=== PATIENT | female | born 1975 | race Hispanic/Latino ===

== ENCOUNTER 2016-10-05 09:59 | Emergency (ER) | payer MEDICAID ==
[2016-10-05 10:18] VITALS: BP 123/68
[2016-10-05] MEDS ORDERED: TORADOL IM ONE (12:05)
--- NOTE | 2016-10-05 12:55 | XRay Report ---
LEFT ANKLE RADIOGRAPHS INDICATION: Pain, swelling. COMPARISON: None similar. FINDINGS: AP, lateral and oblique left ankle radiographs demonstrate intact mortise, malleoli and talar dome contour. Lower leg soft tissue prominence/swelling and possible superficial varicosities, more so medially may also extend to the medial malleolus and some along dorsum of the foot. Small to moderate dorsal and plantar calcaneal spurs. CONCLUSION: No acute left ankle bony abnormality, though medial soft tissue swelling possible and calcaneal spurs also noted, as described. Please correlate. Thank you for the opportunity to participate in this patient's care.
--- NOTE | 2016-10-05 13:05 | XRay Report ---
Left foot 3 views: History: Pain and swelling. Findings: No evidence of acute fracture or dislocation. Arthritic changes at the first tarsometatarsal joint and metatarsophalangeal and interphalangeal joints. Hallux valgus. Spur posterior superior and posterior inferior calcaneum. Impression: No evidence of acute fracture.
--- NOTE | 2016-10-05 13:31 | Emergency Department Report ---
ED Lower Extremity HPI - General Chief Complaint: Extremity Injury, Lower Stated Complaint: LEFT ANKLE PAIN Source: patient Mode of arrival: Wheelchair Limitations: No Limitations - History of Present Illness Initial Comments: 41 year old female presents to ED with left plantar foot pain x1 week. patient is stable, neurologically intact and in no acute distress. MD Complaint: other (left foot pain) -: Gradual, week(s) (1) Injury: Foot: Left Severity: mild Worsens With: weight bearing Associated Symptoms: swelling, able to partially bear weight. denies: snap/pop sensation, numbness, tingling - Related Data Previous Rx's Medication Instructions Recorded Last Taken Type Amoxicillin [Amoxicillin TAB] 875 mg PO BID #20 tablet 12/19/12 Unknown Rx Amoxicillin/K Clav Tab [Augmentin 1 each PO Q8HR #30 tablet 04/01/13 Unknown Rx 500 mg] traMADol [Ultram] 50 mg PO Q6HR PRN #15 tablet 04/01/13 Unknown Rx Albuterol Sulfate [Ventolin HFA] 2 puff IH Q4H PRN #1 hfa.aer.ad 03/06/14 Unknown Rx Amoxicillin 500 mg PO BID #20 tablet 03/06/14 Unknown Rx Ciprofloxacin HCl [Cipro] 500 mg PO Q12H #14 tab 08/12/14 Unknown Rx Ibuprofen [Motrin] 800 mg PO Q8H PRN #30 tablet 08/12/14 Unknown Rx traMADol [Ultram] 50 mg PO Q6HR PRN #20 tablet 08/12/14 Unknown Rx Meloxicam [Mobic] 7.5 mg PO QDAY #5 tablet 10/05/16 Unknown Rx methOCARBAMOL [Robaxin TAB] 500 mg PO BID #10 tab 10/05/16 Unknown Rx Allergies Allergy/AdvReac Type Severity Reaction Status Date / Time aspirin Allergy Angioedema Verified 12/19/12 00:52 cephalexin monohydrate Allergy Angioedema Verified 12/19/12 00:52 [From Keflex] codeine Allergy Angioedema Verified 12/19/12 00:52 Sulfa (Sulfonamide Allergy Angioedema Verified 12/19/12 00:53 Antibiotics) ED Review of Systems ROS: Stated complaint: LEFT ANKLE PAIN Other details as noted in HPI Constitutional: denies: chills, fever Eyes: denies: eye pain, eye discharge, vision change ENT: denies: ear pain, throat pain Respiratory: denies: cough, shortness of breath, wheezing Cardiovascular: denies: chest pain, palpitations Endocrine: no symptoms reported Gastrointestinal: denies: abdominal pain, nausea, diarrhea Genitourinary: denies: urgency, dysuria, discharge Musculoskeletal: joint swelling, arthralgia. denies: back pain Skin: denies: rash, lesions Neurological: denies: headache, weakness, paresthesias Psychiatric: denies: anxiety, depression Hematological/Lymphatic: denies: easy bleeding, easy bruising ED Past Medical Hx - Past Medical History Previous Medical History?: Yes Hx Asthma: Yes - Surgical History Past Surgical History?: Yes Additional Surgical History: cholecysectomy 2005 - Social History Smoking Status: Current Every Day Smoker Substance Use Type: None - Medications Home Medications: Home Medications Medication Instructions Recorded Confirmed Last Taken Type Amoxicillin [Amoxicillin TAB] 875 mg PO BID #20 tablet 12/19/12 04/01/13 Unknown Rx Amoxicillin/K Clav Tab [Augmentin 1 each PO Q8HR #30 tablet 04/01/13 Unknown Rx 500 mg] traMADol [Ultram] 50 mg PO Q6HR PRN #15 tablet 04/01/13 Unknown Rx Albuterol Sulfate [Ventolin HFA] 2 puff IH Q4H PRN #1 hfa.aer.ad 03/06/14 Unknown Rx Amoxicillin 500 mg PO BID #20 tablet 03/06/14 Unknown Rx Ciprofloxacin HCl [Cipro] 500 mg PO Q12H #14 tab 08/12/14 Unknown Rx Ibuprofen [Motrin] 800 mg PO Q8H PRN #30 tablet 08/12/14 Unknown Rx traMADol [Ultram] 50 mg PO Q6HR PRN #20 tablet 08/12/14 Unknown Rx Meloxicam [Mobic] 7.5 mg PO QDAY #5 tablet 10/05/16 Unknown Rx methOCARBAMOL [Robaxin TAB] 500 mg PO BID #10 tab 10/05/16 Unknown Rx ED Physical Exam - General Limitations: No Limitations General appearance: alert, in no apparent distress - Head Head exam: Present: atraumatic, normocephalic - Eye Eye exam: Present: normal appearance - ENT ENT exam: Present: mucous membranes moist - Neck Neck exam: Present: normal inspection, full ROM - Respiratory Respiratory exam: Present: normal lung sounds bilaterally. Absent: respiratory distress, wheezes, rales, rhonchi - Cardiovascular Cardiovascular Exam: Present: regular rate, normal rhythm. Absent: systolic murmur, diastolic murmur, rubs, gallop - GI/Abdominal GI/Abdominal exam: Present: soft, normal bowel sounds. Absent: distended, tenderness - Extremities Exam Extremities exam: Present: normal inspection, full ROM, tenderness (mild tenderness to plantar surface of left foot. ) - Back Exam Back exam: Present: normal inspection - Neurological Exam Neurological exam: Present: alert, oriented X3 - Psychiatric Psychiatric exam: Present: normal affect, normal mood - Skin Skin exam: Present: warm, dry, intact, normal color. Absent: rash ED Course Vital Signs 10/05/16 10:16 Temperature 98.6 F Pulse Rate 65 Respiratory 16 Rate Blood Pressure 123/68 O2 Sat by Pulse 99 Oximetry ED Lower Extremity MDM - Radiology Data Radiology results: report reviewed left foot/ankle xray No evidence of acute fracture. spur posterior inferior calcaneum. - Medical Decision Making 41 year old female presents to ED with left foot pain x1 week. patient denies injury/trauma. patient has imaging study positive for calcaneal spur at site of pain. patient will be given prescription for NSAIDS and muscle relaxants. patient is stable, neurologically intact and in no acute distress. patient has refused medication during ED visit. Critical care attestation.: If time is entered above; I have spent that time in minutes in the direct care of this critically ill patient, excluding procedure time. ED Disposition Clinical Impression: Calcaneal spur Qualifiers: Laterality: left Qualified Code(s): M77.32 - Calcaneal spur, left foot Disposition: TO HOME OR SELFCARE Is pt being admited?: No Does the pt Need Aspirin: No Condition: Stable Instructions: Plantar Fasciitis (ED) Prescriptions: Meloxicam [Mobic] 7.5 mg PO QDAY #5 tablet methOCARBAMOL [Robaxin TAB] 500 mg PO BID #10 tab Referrals: PRIMARY CARE, [Primary Care Provider] - 3-5 Days
== END 2016-10-05 13:41 | disposition home or self-care (01) ==
LOC: ED 09:59
DX: M77.32 Calcaneal spur, left foot (principal); J45.909 Unspecified asthma, uncomplicated; F17.200 Nicotine dependence, unspecified, uncomplicated; Z88.5 Allergy status to narcotic agent; Z88.2 Allergy status to sulfonamides; Z88.6 Allergy status to analgesic agent
CPT/HCPCS: 73610; 73630; 99283; J1885

== ENCOUNTER 2016-12-31 09:47 | Emergency (ER) | payer MEDICAID ==
[2016-12-31 10:33] VITALS: BP 124/72
[2016-12-31] MEDS ORDERED: PROVENTIL IH ONE (12:50)
--- NOTE | 2016-12-31 13:02 | Emergency Department Report ---
- General Chief Complaint: Upper Respiratory Infection Stated Complaint: SOB,WEAK,FEVER Time Seen by Provider: 12/31/16 11:59 Source: EMS Mode of arrival: Ambulatory Limitations: No Limitations - History of Present Illness Initial Comments: This is a 41-year-old female nontoxic, well nourished in appearance, no acute signs of distress presents to the ED with c/o of frontal sinus pain, nasal congestion, fever, chills, shortness of breathe, productive cough x3 days. Patient denies any trauma. Patient describes headache in the frontal region of the scalp and describes it as aching with level of 8/10. Patient denies thunderclap headache. Patient denies any vomiting or any nausea/vomiting. Patient denies any chest pain, fever, chills, nausea, vomiting, numbness, tingling, stiff neck, blurry vision, visual changes. Patient denies any calf pain, calf tenderness. Denies recent travels, long car rides or recent hospital stays. Patient states allergies to aspirin, Keflex, codeine, and sulfa drugs. PMH includes asthma. MD Complaint: fever, cough, rhinorrhea, nasal congestion, sinus pain -: Gradual, days(s) (3) Severity: mild Severity scale (0 -10): 8 Quality: aching Consistency: constant Improves With: nothing Worsens With: nothing Associated Symptoms: fever, chills, headache, rhinorrhea, nasal congestion, cough, shortness of breath. denies: myalgias, diaphoresis, sore throat, stiff neck, chest pain, abdominal pain, nausea, vomiting, diarrhea, dysuria, rash, confusion, right sweats, weight loss, epistaxis, hoarseness, ear pain Treatments Prior to Arrival: none - Related Data Previous Rx's Medication Instructions Recorded Last Taken Type Amoxicillin [Amoxicillin TAB] 875 mg PO BID #20 tablet 12/19/12 Unknown Rx Amoxicillin/K Clav Tab [Augmentin 1 each PO Q8HR #30 tablet 04/01/13 Unknown Rx 500 mg] traMADol [Ultram] 50 mg PO Q6HR PRN #15 tablet 04/01/13 Unknown Rx Albuterol Sulfate [Ventolin HFA] 2 puff IH Q4H PRN #1 hfa.aer.ad 03/06/14 Unknown Rx Amoxicillin 500 mg PO BID #20 tablet 03/06/14 Unknown Rx Ciprofloxacin HCl [Cipro] 500 mg PO Q12H #14 tab 08/12/14 Unknown Rx Ibuprofen [Motrin] 800 mg PO Q8H PRN #30 tablet 08/12/14 Unknown Rx traMADol [Ultram] 50 mg PO Q6HR PRN #20 tablet 08/12/14 Unknown Rx Meloxicam [Mobic] 7.5 mg PO QDAY #5 tablet 10/05/16 Unknown Rx methOCARBAMOL [Robaxin TAB] 500 mg PO BID #10 tab 10/05/16 Unknown Rx ALBUTEROL Inhaler [ProAir HFA 2 puff IH QID PRN #1 inhalation 12/31/16 Unknown Rx Inhaler] Clindamycin [Clindamycin CAP] 300 mg PO Q8H 7 Days cap 12/31/16 Unknown Rx predniSONE [Deltasone] 40 mg PO QDAY #5 tab 12/31/16 Unknown Rx Allergies Allergy/AdvReac Type Severity Reaction Status Date / Time aspirin Allergy Angioedema Verified 12/19/12 00:52 cephalexin monohydrate Allergy Angioedema Verified 12/19/12 00:52 [From Keflex] codeine Allergy Angioedema Verified 12/19/12 00:52 Sulfa (Sulfonamide Allergy Angioedema Verified 12/19/12 00:53 Antibiotics) ED Review of Systems ROS: Stated complaint: SOB,WEAK,FEVER Other details as noted in HPI Constitutional: denies: chills, fever Eyes: denies: eye pain, eye discharge, vision change ENT: denies: ear pain, throat pain Respiratory: cough, shortness of breath, wheezing Cardiovascular: denies: chest pain, palpitations Endocrine: no symptoms reported Gastrointestinal: denies: abdominal pain, nausea, diarrhea Genitourinary: denies: urgency, dysuria, discharge Musculoskeletal: denies: back pain, joint swelling, arthralgia Skin: denies: rash, lesions Neurological: denies: headache, weakness, paresthesias Psychiatric: denies: anxiety, depression Hematological/Lymphatic: denies: easy bleeding, easy bruising ED Past Medical Hx - Past Medical History Previous Medical History?: Yes Hx Asthma: Yes - Surgical History Past Surgical History?: Yes Hx Cholecystectomy: Yes Additional Surgical History: cholecysectomy 2005 - Social History Smoking Status: Current Every Day Smoker - Medications Home Medications: Home Medications Medication Instructions Recorded Confirmed Last Taken Type Amoxicillin [Amoxicillin TAB] 477 mg PO BID #20 tablet 12/19/12 04/01/13 Unknown Rx Amoxicillin/K Clav Tab [Augmentin 1 each PO Q8HR #30 tablet 04/01/13 Unknown Rx 500 mg] traMADol [Ultram] 50 mg PO Q6HR PRN #15 tablet 04/01/13 Unknown Rx Albuterol Sulfate [Ventolin HFA] 2 puff IH Q4H PRN #1 hfa.aer.ad 03/06/14 Unknown Rx Amoxicillin 500 mg PO BID #20 tablet 03/06/14 Unknown Rx Ciprofloxacin HCl [Cipro] 500 mg PO Q12H #14 tab 08/12/14 Unknown Rx Ibuprofen [Motrin] 800 mg PO Q8H PRN #30 tablet 08/12/14 Unknown Rx traMADol [Ultram] 50 mg PO Q6HR PRN #20 tablet 08/12/14 Unknown Rx Meloxicam [Mobic] 7.5 mg PO QDAY #5 tablet 10/05/16 Unknown Rx methOCARBAMOL [Robaxin TAB] 500 mg PO BID #10 tab 10/05/16 Unknown Rx ALBUTEROL Inhaler [ProAir HFA 2 puff IH QID PRN #1 inhalation 12/31/16 Unknown Rx Inhaler] Clindamycin [Clindamycin CAP] 300 mg PO Q8H 7 Days cap 12/31/16 Unknown Rx predniSONE [Deltasone] 40 mg PO QDAY #5 tab 12/31/16 Unknown Rx ED Physical Exam - General Limitations: No Limitations General appearance: alert, in no apparent distress - Head Head exam: Present: atraumatic, normocephalic, normal inspection - Eye Eye exam: Present: normal appearance, PERRL, EOMI. Absent: scleral icterus, conjunctival injection, nystagmus, periorbital swelling, periorbital tenderness Pupils: Present: normal accommodation - ENT ENT exam: Present: normal exam, normal orophraynx, mucous membranes moist, TM's normal bilaterally, normal external ear exam - Neck Neck exam: Present: normal inspection, full ROM. Absent: tenderness, meningismus, lymphadenopathy, thyromegaly - Respiratory Respiratory exam: Present: normal lung sounds bilaterally, wheezes (inspiratory and expiratory bilateral upper and lower lobes). Absent: respiratory distress, rales, rhonchi, stridor, chest wall tenderness, accessory muscle use, decreased breath sounds, prolonged expiratory - Cardiovascular Cardiovascular Exam: Present: regular rate, normal rhythm, normal heart sounds. Absent: bradycardia, tachycardia, irregular rhythm, systolic murmur, diastolic murmur, rubs, gallop - GI/Abdominal GI/Abdominal exam: Present: soft, normal bowel sounds. Absent: distended, tenderness, guarding, rebound, rigid, diminished bowel sounds - Rectal Rectal exam: Present: deferred - Extremities Exam Extremities exam: Present: normal inspection, full ROM, normal capillary refill. Absent: tenderness, pedal edema, joint swelling, calf tenderness - Back Exam Back exam: Present: normal inspection, full ROM. Absent: tenderness, CVA tenderness (R), CVA tenderness (L), muscle spasm, paraspinal tenderness, vertebral tenderness, rash noted - Neurological Exam Neurological exam: Present: alert, oriented X3, CN II-XII intact, normal gait, reflexes normal - Psychiatric Psychiatric exam: Present: normal affect, normal mood - Skin Skin exam: Present: warm, dry, intact, normal color. Absent: rash - Other Other exam information: Positive frontal sinus tenderness ED Course Vital Signs 12/31/16 10:28 Temperature 97.4 F L Pulse Rate 75 Respiratory 20 Rate Blood Pressure 124/72 O2 Sat by Pulse 94 Oximetry - Reevaluation(s) Reevaluation #1: 12/31/16 13:05 Patient is speaking in full sentences with no signs of distress noted. ED Medical Decision Making - Medical Decision Making This is a 41-year-old female that presents with sinusitis and upper respiratory infection. Patient is stable and was examined by me. CBC, BMP, troponin, cardiac CK, d-dimer obtained with normal limits. Chest x-ray has been obtained and the radiologist with normal examination. UA obtained. EKG normal sinus rhythm with no ST abnormalities. Patient notified of laboratory results and x- ray results with noted by the patient. Patient received DuoNeb and Solu-Medrol in the ED with persistent symptoms of shortness of breath has subsided. Upon auscultation there is no wheezing post treatment. Patient treated with clinda at discharge and albuterol and prednisone. Patient was instructed Follow-up with a primary care doctor in 3-5 days or if symptoms worsen and continue return to emergency room as soon as possible. At time time of discharge, the patient does not seem toxic or ill in appearance. No acute signs of distress noted. Patient agrees to discharge treatment plan of care. No further questions noted by the patient. Critical care attestation.: If time is entered above; I have spent that time in minutes in the direct care of this critically ill patient, excluding procedure time. ED Disposition Clinical Impression: Upper respiratory infection Qualifiers: URI type: unspecified URI Qualified Code(s): J06.9 - Acute upper respiratory infection, unspecified Sinusitis Qualifiers: Sinusitis location: frontal Chronicity: acute Recurrence: non-recurrent Qualified Code(s): J01.10 - Acute frontal sinusitis, unspecified Disposition: - TO HOME OR SELFCARE Is pt being admited?: No Does the pt Need Aspirin: No Condition: Stable Instructions: Upper Respiratory Infection (ED), Sinusitis (ED), Albuterol (By breathing), Prednisone (By mouth), Clindamycin (By mouth) Additional Instructions: Follow-up with a primary care doctor in 3-5 days or if symptoms worsen and continue return to emergency room as soon as possible. Prescriptions: ALBUTEROL Inhaler [ProAir HFA Inhaler] 2 puff IH QID PRN #1 inhalation PRN Reason: Shortness Of Breath Clindamycin [Clindamycin CAP] 300 mg PO Q8H 7 Days cap predniSONE [Deltasone] 40 mg PO QDAY #5 tab Referrals: PRIMARY CARE, [Primary Care Provider] - 3-5 Days LOLIS SALINAS MD [Staff Physician] - 3-5 Days [facility] [Outside] - 3-5 Days [facility] [Outside] - 3-5 Days Forms: Work/School Release Form(ED)
[2016-12-31 13:38] LABS: Basophils % (Auto) 0.8 % (0.0-1.8); Eosinophils % (Auto) 6.2 % (0.0-4.3); Hematocrit 40.9 % (30.3-42.9); Hemoglobin 13.3 gm/dl (10.1-14.3); Mean Corpuscular HGB Conc 32 % (30-34); Mean Corpuscular Volume 78 fl (79-97); Platelet Count 135 K/mm3 (140-440); Red Blood Count 5.28 M/mm3 (3.65-5.03); Red Cell Distribution Width 17.9 % (13.2-15.2); White Blood Count 6.2 K/mm3 (4.5-11.0)
[2016-12-31 13:43] LABS: Mean Corpuscular Hemoglobin 25 pg (28-32)
[2016-12-31 13:53] LABS: Bilirubin,Urine NEG (Negative); Blood,Urine SM (Negative); Ketones,Urine NEG (Negative); Leukocyte Esterase,Urine NEG (Negative); Mucus,Urine 3+ /HPF; Nitrite,Urine NEG (Negative); Urobilinogen,Urine < 2.0 mg/dL (<2.0)
[2016-12-31 13:53] LABS: Creatine Kinase MB 1.3 ng/mL (0.0-4.0)
[2016-12-31 13:54] LABS: Anion Gap 20 mmol/L; BUN/Creatinine Ratio 24; Blood Urea Nitrogen 12 mg/dL (7-17); Carbon Dioxide 25 mmol/L (22-30); Chloride 102.5 mmol/L (98-107); Creatine Kinase 78 units/L (30-135); Glucose 85 mg/dL (65-100); Potassium 4.1 mmol/L (3.6-5.0); Sodium 143 mmol/L (137-145)
--- NOTE | 2016-12-31 14:08 | XRay Report ---
ROUTINE CHEST, TWO VIEWS: HISTORY: Cough, shortness of breath. The trachea, heart, mediastinal contour, lung estevez and bony thorax are unremarkable. IMPRESSION: Unremarkable chest x-ray.
== END 2016-12-31 14:37 | disposition home or self-care (01) ==
LOC: ED 09:47
DX: J32.1 Chronic frontal sinusitis (principal); J06.9 Acute upper respiratory infection, unspecified; F17.200 Nicotine dependence, unspecified, uncomplicated; Z88.6 Allergy status to analgesic agent; Z88.1 Allergy status to other antibiotic agents; Z88.2 Allergy status to sulfonamides
CPT/HCPCS: 36415; 71020; 80048; 81001; 82550; 82553; 84484; 85025; 85379; 87400; 93005; 93010; 94640; 96372; 99284; J2930

== ENCOUNTER 2017-01-05 12:01 | Emergency (ER) | payer MEDICAID ==
[2017-01-05 13:53] LABS: Basophils % (Auto) 0.5 % (0.0-1.8); Eosinophils % (Auto) 2.5 % (0.0-4.3); Hematocrit 41.2 % (30.3-42.9); Hemoglobin 13.3 gm/dl (10.1-14.3); Mean Corpuscular HGB Conc 32 % (30-34); Mean Corpuscular Volume 78 fl (79-97); Platelet Count 190 K/mm3 (140-440); Red Blood Count 5.32 M/mm3 (3.65-5.03); Red Cell Distribution Width 17.7 % (13.2-15.2); White Blood Count 9.1 K/mm3 (4.5-11.0)
[2017-01-05 14:05] LABS: Mean Corpuscular Hemoglobin 25 pg (28-32)
[2017-01-05 14:10] LABS: Alanine Aminotransferase 111 units/L (7-56); Albumin 3.9 g/dL (3.9-5); Albumin/Globulin Ratio 1.1 %; Alkaline Phosphatase 90 units/L (35-129); Anion Gap 15 mmol/L; BUN/Creatinine Ratio 14; Blood Urea Nitrogen 7 mg/dL (7-17); Calcium 8.9 mg/dL (8.4-10.2); Carbon Dioxide 27 mmol/L (22-30); Chloride 101.7 mmol/L (98-107); Glucose 103 mg/dL (65-100); Lipase 21 units/L (13-60); Potassium 3.5 mmol/L (3.6-5.0); Sodium 140 mmol/L (137-145); Total Protein 7.3 g/dL (6.3-8.2)
[2017-01-05 15:56] LABS: Bacteria,Urine 1+ /HPF (Negative); Bilirubin,Urine NEG (Negative); Blood,Urine LG (Negative); Ketones,Urine NEG (Negative); Leukocyte Esterase,Urine TR (Negative); Mucus,Urine FEW /HPF; Nitrite,Urine NEG (Negative); Protein,Urine <15 mg/dL mg/dL (Negative); Urobilinogen,Urine < 2.0 mg/dL (<2.0)
[2017-01-05] MEDS ORDERED: SUBLIMAZE IV ONE ×2 (17:04→20:29)
[2017-01-05] MEDS ORDERED: NACL 0.9% 1000 ML 1,000 ML IV ONE (17:04)
[2017-01-05] MEDS ORDERED: ZOFRAN IV ONE (17:04)
--- NOTE | 2017-01-05 17:09 | Emergency Department Report ---
ED Abdominal Pain HPI - General Chief Complaint: Abdominal Pain Stated Complaint: ABD PAIN Time Seen by Provider: 01/05/17 16:57 Source: EMS Mode of arrival: Ambulatory Limitations: No Limitations - History of Present Illness Initial Comments: Patient is 42 years old female history of asthma presented today is epigastric and right upper quadrant abdominal pain started today associated with nausea vomiting no diarrhea. Patient denied any fever. Patient rated her pain as 10 out of 10. Patient stated that she was recently treated for acute bronchitis with antibiotic. MD Complaint: abdominal pain Location: RUQ, epigastric Radiation: none - Related Data Previous Rx's Medication Instructions Recorded Last Taken Type Amoxicillin [Amoxicillin TAB] 875 mg PO BID #20 tablet 12/19/12 Unknown Rx Amoxicillin/K Clav Tab [Augmentin 1 each PO Q8HR #30 tablet 04/01/13 Unknown Rx 500 mg] traMADol [Ultram] 50 mg PO Q6HR PRN #15 tablet 04/01/13 Unknown Rx Albuterol Sulfate [Ventolin HFA] 2 puff IH Q4H PRN #1 hfa.aer.ad 03/06/14 Unknown Rx Amoxicillin 500 mg PO BID #20 tablet 03/06/14 Unknown Rx Ciprofloxacin HCl [Cipro] 500 mg PO Q12H #14 tab 08/12/14 Unknown Rx Ibuprofen [Motrin] 800 mg PO Q8H PRN #30 tablet 08/12/14 Unknown Rx traMADol [Ultram] 50 mg PO Q6HR PRN #20 tablet 08/12/14 Unknown Rx Meloxicam [Mobic] 7.5 mg PO QDAY #5 tablet 10/05/16 Unknown Rx methOCARBAMOL [Robaxin TAB] 500 mg PO BID #10 tab 10/05/16 Unknown Rx ALBUTEROL Inhaler [ProAir HFA 2 puff IH QID PRN #1 inhalation 12/31/16 Unknown Rx Inhaler] Clindamycin [Clindamycin CAP] 300 mg PO Q8H 7 Days cap 12/31/16 Unknown Rx predniSONE [Deltasone] 40 mg PO QDAY #5 tab 12/31/16 Unknown Rx Allergies Allergy/AdvReac Type Severity Reaction Status Date / Time aspirin Allergy Angioedema Verified 12/19/12 00:52 cephalexin monohydrate Allergy Angioedema Verified 12/19/12 00:52 [From Keflex] codeine Allergy Angioedema Verified 12/19/12 00:52 Sulfa (Sulfonamide Allergy Angioedema Verified 12/19/12 00:53 Antibiotics) ED Review of Systems ROS: Stated complaint: ABD PAIN Other details as noted in HPI Comment: All other systems reviewed and negative Constitutional: denies: chills, fever Respiratory: denies: cough, orthopnea, shortness of breath, SOB with exertion Cardiovascular: denies: chest pain, palpitations, dyspnea on exertion, orthopnea , edema, syncope, paroxysmal nocturnal dyspnea Gastrointestinal: abdominal pain, nausea, vomiting. denies: diarrhea, constipation, hematemesis, melena, hematochezia Genitourinary: denies: urgency, frequency Musculoskeletal: denies: back pain, joint swelling Neurological: denies: headache, weakness, numbness, paresthesias, confusion, abnormal gait ED Past Medical Hx - Past Medical History Hx Asthma: Yes - Surgical History Hx Cholecystectomy: Yes Additional Surgical History: cholecysectomy 2006 - Social History Smoking Status: Current Every Day Smoker Substance Use Type: None - Medications Home Medications: Home Medications Medication Instructions Recorded Confirmed Last Taken Type Amoxicillin [Amoxicillin TAB] 875 mg PO BID #20 tablet 12/19/12 04/01/13 Unknown Rx Amoxicillin/K Clav Tab [Augmentin 1 each PO Q8HR #30 tablet 04/01/13 Unknown Rx 500 mg] traMADol [Ultram] 50 mg PO Q6HR PRN #15 tablet 04/01/13 Unknown Rx Albuterol Sulfate [Ventolin HFA] 2 puff IH Q4H PRN #1 hfa.aer.ad 03/06/14 Unknown Rx Amoxicillin 500 mg PO BID #20 tablet 03/06/14 Unknown Rx Ciprofloxacin HCl [Cipro] 500 mg PO Q12H #14 tab 08/12/14 Unknown Rx Ibuprofen [Motrin] 800 mg PO Q8H PRN #30 tablet 08/12/14 Unknown Rx traMADol [Ultram] 50 mg PO Q6HR PRN #20 tablet 08/12/14 Unknown Rx Meloxicam [Mobic] 7.5 mg PO QDAY #5 tablet 10/05/16 Unknown Rx methOCARBAMOL [Robaxin TAB] 500 mg PO BID #10 tab 10/05/16 Unknown Rx ALBUTEROL Inhaler [ProAir HFA 2 puff IH QID PRN #1 inhalation 12/31/16 Unknown Rx Inhaler] Clindamycin [Clindamycin CAP] 300 mg PO Q8H 7 Days cap 12/31/16 Unknown Rx predniSONE [Deltasone] 40 mg PO QDAY #5 tab 12/31/16 Unknown Rx ED Physical Exam - General Limitations: No Limitations General appearance: alert, in no apparent distress - Head Head exam: Present: atraumatic, normocephalic, normal inspection - Eye Eye exam: Present: normal appearance, PERRL - ENT ENT exam: Present: normal exam, normal orophraynx, mucous membranes dry - Neck Neck exam: Present: normal inspection, full ROM. Absent: tenderness, meningismus, lymphadenopathy, thyromegaly - Respiratory Respiratory exam: Present: normal lung sounds bilaterally. Absent: respiratory distress, wheezes, rales, rhonchi, stridor, chest wall tenderness, accessory muscle use, decreased breath sounds, prolonged expiratory - Cardiovascular Cardiovascular Exam: Present: regular rate, normal rhythm, normal heart sounds - GI/Abdominal GI/Abdominal exam: Present: soft, tenderness, normal bowel sounds. Absent: guarding, rebound, rigid, organomegaly, mass, bruit, pulsatile mass, hernia - Extremities Exam Extremities exam: Present: normal inspection, normal capillary refill. Absent: tenderness - Back Exam Back exam: Present: normal inspection. Absent: CVA tenderness (R), CVA tenderness (L) - Neurological Exam Neurological exam: Present: alert, oriented X3, CN II-XII intact, normal gait - Skin Skin exam: Present: warm, dry, intact ED Course Vital Signs 01/05/17 01/05/17 01/05/17 13:14 17:24 17:30 Temperature 98 F Pulse Rate 65 67 73 Respiratory 18 17 15 Rate Blood Pressure 133/59 132/76 O2 Sat by Pulse 100 95 Oximetry 01/05/17 01/05/17 01/05/17 17:45 18:13 18:15 Temperature Pulse Rate 69 74 74 Respiratory 21 17 28 H Rate Blood Pressure 130/62 130/62 123/51 O2 Sat by Pulse 92 85 Oximetry 01/05/17 01/05/17 01/05/17 18:30 18:31 18:45 Temperature Pulse Rate 76 63 Respiratory 24 22 10 L Rate Blood Pressure 141/79 151/85 O2 Sat by Pulse 92 95 Oximetry 01/05/17 01/05/17 19:00 19:15 Temperature Pulse Rate 63 67 Respiratory 20 25 H Rate Blood Pressure 149/70 151/61 O2 Sat by Pulse 96 Oximetry - Reevaluation(s) Reevaluation #1: 01/05/17 19:47 Patient stated that she is feeling better. ED Medical Decision Making - Lab Data Result diagrams: 01/05/17 13:37 01/05/17 13:37 - Radiology Data Radiology results: report reviewed CT abdomen and pelvis and no acute finding except for right lung lower lobe infiltrate Critical care attestation.: If time is entered above; I have spent that time in minutes in the direct care of this critically ill patient, excluding procedure time. ED Disposition Clinical Impression: Abdominal pain, Pneumonia Disposition: DC-01 TO HOME OR SELFCARE Is pt being admited?: No Condition: Stable Instructions: Abdominal Pain (ED), Bacterial Pneumonia (ED) Referrals: PRIMARY CARE, [Primary Care Provider] - 3-5 Days
[2017-01-05] MEDS ORDERED: NACL ONE (17:26)
--- NOTE | 2017-01-05 18:49 | Cat Scan Report ---
FINAL REPORT EXAM: CT ABDOMEN PELVIS W CON HISTORY: abdominal pain TECHNIQUE: Standard enhanced CT of the abdomen and pelvis. Delayed imaging through the kidneys and bladder was obtained. Coronal and sagittal reconstruction was also performed. Contrast: 100 mL Omnipaque 300 given IV. PRIORS: None. FINDINGS: Within the abdomen, the liver, pancreas, adrenal glands, and kidneys are unremarkable. Gallbladder has been surgically removed. There is air intrahepatic and extrahepatic biliary prominence, probably due to the prior cholecystectomy. No obstructing calculus or mass is seen in the common bile duct. The spleen is enlarged measuring 16.6 cm in AP diameter. No evidence for retroperitoneal or pelvic lymphadenopathy is seen. The bowel loops have normal caliber. No soft tissue mass, fluid collection, inflammatory change, or free air is seen within the abdomen or pelvis. The appendix is normal. Mild calcification of the aorta is seen. Within the pelvis, the bladder is unremarkable. The uterus is normal. Bilateral fallopian tube coils are in place. No evidence for mass or lymphadenopathy is seen in the pelvis. Images through the upper abdomen include the lung bases which demonstrates linear atelectasis in the right middle lobe anteriorly. There is also ground-glass opacity in the right lower and middle lobes, likely related to inflammation or infection. Bony structures show severe narrowing of the L5-S1 disc space. IMPRESSION: 1. no acute intra-abdominal process noted. 2. Splenomegaly 3. Prior cholecystectomy with subsequent intrahepatic and extrahepatic biliary prominence. No evidence for biliary obstruction is seen. 4. Linear atelectasis in the right middle lobe ground-glass opacity in the right lower and middle lobes are likely related to inflammation or infection.
[2017-01-05] MEDS ORDERED: SUBLIMAZE ONE (19:32)
[2017-01-05] MEDS ORDERED: REGLAN ONE (19:41)
[2017-01-05] MEDS ORDERED: BENTYL IM ONE ×2 (19:44→20:29)
[2017-01-05] MEDS ORDERED: LEVAQUIN 750MG/150ML 750 MG/150 ML BAG IV ONE (19:45)
[2017-01-05] MEDS ORDERED: REGLAN IV ONE (20:29)
[2017-01-05 23:17] VITALS: BP 117/53
== END 2017-01-05 23:22 | disposition home or self-care (01) ==
LOC: ED 12:01
DX: R10.13 Epigastric pain (principal); R10.11 Right upper quadrant pain; J18.9 Pneumonia, unspecified organism; J45.909 Unspecified asthma, uncomplicated; F17.200 Nicotine dependence, unspecified, uncomplicated; Z90.49 Acquired absence of other specified parts of digestive tract; Z88.2 Allergy status to sulfonamides; Z88.1 Allergy status to other antibiotic agents; Z88.6 Allergy status to analgesic agent
CPT/HCPCS: 36415; 74177; 80053; 81001; 83690; 85025; 96361; 96365; 96372; 96375; 99284; J0500; J1956; J2405; J2765; J3010; J7030; Q9967

== ENCOUNTER 2020-04-22 14:52 | Outpatient (CLI) | payer MEDICAID ==
--- NOTE | 2020-04-25 09:31 | XRay Report ---
LEFT KNEE 2 VIEWS INDICATION / CLINICAL INFORMATION: Knee pain. COMPARISON: None available. FINDINGS: BONES / JOINT(S): No acute fracture or subluxation. Diffuse soft tissue swelling. SOFT TISSUES: No significant abnormality. ADDITIONAL FINDINGS: None. Signer Name: Cleve Davenport MD Signed: 04/25/2020 9:27 AM Workstation Name: [id number]
== END 2020-04-22 14:53 | disposition home or self-care (01) ==
LOC: SPVIMAG 14:52
PROVIDERS: ATTEND Internal Medicine
DX: M25.562 Pain in left knee (principal)